=== PATIENT | male | born 1990 | race Caucasian/White ===

== ENCOUNTER 2018-01-19 09:31 | Emergency (ER) | payer MEDICAID ==
[2018-01-19] MEDS ORDERED: Lidocaine 1% with EPINEPHrine 1:100,000 20 ML MDV INJECT ONE (09:48)
[2018-01-19] MEDS ORDERED: Bupivacaine 0.5% 10 ML SDV INJECT ONE (09:49)
[2018-01-19] MEDS ORDERED: Lidocaine 1% 10 ML MDV INJECT ONE (09:51)
--- NOTE | 2018-01-19 12:34 | EDM.PDOC ---
ED HPI GENERAL MEDICAL PROBLEM - General Chief Complaint: Lower Extremity Injury/Pain Stated Complaint: INFECTED TOENAIL Time Seen by Provider: 01/19/18 09:41 Source of Information: Reports: Patient History Limitations: Reports: No Limitations - History of Present Illness INITIAL COMMENTS - FREE TEXT/NARRATIVE: The patient states that he has recurrent ingrown toenail of the right great toe. He states that he will often cut along the toenail and remove the lateral and medial aspects of the toenail - the last time he did this was about a month ago. He states that he has had the entire toenail removed in the past, that it always grows back. The last time he saw somebody about it was about 3 months ago. He now presents with swelling to the lateral and medial aspects of the toenail, with pain primarily to the lateral aspect, for the past 1-2 months. No recent fever. The patient does not have a PCP. He states that he has been working overtime in the [employer], and does not have time to go a doctor. He is requesting that I remove the toenail. Right Feet Pain Score (Numeric/FACES): 10 - Related Data Allergies Allergy/AdvReac Type Severity Reaction Status Date / Time No Known Allergies Allergy Verified 01/19/18 09:39 Home Meds: Home Meds Cephalexin [Keflex] 1 cap PO Q6H #28 capsule 01/19/18 [Rx] Past Medical History Endocrine/Metabolic History: Reports: Obesity/BMI 30+ - Past Surgical History HEENT Surgical History: Reports: Oral Surgery ([place] teeth extraction), Tonsillectomy Social & Family History - Tobacco Use Tobacco Use Within Last Twelve Months: Other (See Below) (Chews about 1 can per day x 17 years) - Caffeine Use Caffeine Use: Reports: Energy Drinks - Alcohol Use Alcohol Use History: Yes Days Per Week of Alcohol Use: 7 Number of Drinks Per Day: 2 Total Drinks Per Week: 14 Alcohol Use Frequency: Daily - Recreational Drug Use Recreational Drug Use: No - Living Situation & Occupation Living situation: Reports: Single, with Family Occupation: Employed (Quietly) Review of Systems - Review of Systems Review Of Systems: ROS reveals no pertinent complaints other than HPI. ED EXAM, GENERAL - Physical Exam Exam: See Below Exam Limited By: No Limitations General Appearance: Alert, WD/WN, No Apparent Distress Extremities: Other (The right great toe has erythema and swelling primarily to the lateral and medial aspects of the toenail. The toenail is buried within tissue, consistent with ingrown toenail. There are likely paronychias on both the medial and lateral aspects. These areas are particularly tender. Neurovascular status of the toe is intact.) Course - Vital Signs Last Recorded V/S: Last Vital Signs Temp 37.0 C 01/19/18 09:36 Pulse 84 01/19/18 09:36 Resp 18 01/19/18 09:36 BP 163/96 H 01/19/18 09:36 Pulse Ox 96 01/19/18 09:36 - Orders/Labs/Meds Meds: Medications Discontinued Medications Generic Name Dose Route Start Last Admin Trade Name Mariella PRN Reason Stop Dose Admin Bupivacaine HCl 10 ml 01/19/18 09:49 01/19/18 11:09 Sensorcaine-Mpf 0.5% INJECT 01/19/18 09:50 10 ml ONETIME ONE Administration Cephalexin 500 mg 01/19/18 13:03 01/19/18 13:08 Keflex PO 01/19/18 13:04 500 mg ONETIME ONE Administration Lidocaine HCl 10 ml 01/19/18 09:51 01/19/18 11:09 Xylocaine 1% INJECT 01/19/18 09:52 10 ml ONETIME ONE Administration - Re-Assessments/Exams Free Text/Narrative Re-Assessment/Exam: 01/19/18 12:19 The lateral and medial aspects of the toe were sterilized using Betadine solution. Digital block was performed using 6.5 mL infiltration of an admixture of 1% lidocaine, no epinephrine, and 0.5% bupivacaine, no epinephrine. Following attempt at digital block, the vast majority of the patient's toe is numb, but not the distal tip of the toe. I therefore infiltrated an additional 3.5 mL, and will reassess in a few minutes. 01/19/18 13:02 Following the second injection for a digital block, the patient still had some sensation to the end of his toe, therefore I infiltrated an additional 2 mL lidocaine/bupivacaine, to good anesthetic effect. The toenail was then peeled back and removed. No purulence, however, I am concerned that there may be a paronychia, therefore I will start the patient on Keflex. The patient's toe will be dressed with a non-stick dressing. Departure - Departure Time of Disposition: 13:06 Disposition: Home, Self-Care 01 Condition: Good Clinical Impression: Paronychia of great toe, right - Discharge Information Prescriptions: Cephalexin [Keflex] 1 cap PO Q6H #28 capsule Instructions: Paronychia, [id number] Referrals: PCP,Severo [Primary Care Provider] - [place] Nguyen [Physician] - Forms: ED Department Discharge Additional Instructions: You were seen in the emergency room for an infection of your right big toe. Your toenail was removed in the ER. Your toe has been dressed with a nonstick dressing. Keep your toe clean with ordinary soap and water. Change the dressing at least once a day. Take [id number] ibuprofen, 2-3 tablets (400-600 mg) every 8 hours, with food, as needed for discomfort. You have been started on the antibiotic Keflex. Take one tablet every 6 hours, as prescribed. Follow-up with Dr. Nguyen in the clinic this coming week. If any other problems, please do not hesitate to return to the ER.
[2018-01-19] MEDS ORDERED: Cephalexin 500 MG Cap PO ONE (13:03)
== END 2018-01-19 13:20 | disposition home or self-care (01) ==
LOC: JD.ED 09:31
DX: L03.031 Cellulitis of right toe (principal); E66.9 Obesity, unspecified
CPT/HCPCS: 11730; 99283; A9270; 99282-25